=== PATIENT | female | born 2005 | race Caucasian/White ===

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

== ENCOUNTER → 2023-02-06 15:02 | Outpatient (CLI) | payer OTHER, MEDICAID, SELFPAY ==
[2023-02-09 22:56] LABS: AFP, Serum 40.1 ng/mL (.); Estriol, Free 2.13 ng/mL (.); Inhibin A, Dimeric 105.85 pg/mL (.); Inhibin A, MoM 0.68 (.); Maternal Ethnicity Caucasian (.); Maternal Weight 145 lbs (.); Number of Fetuses No (.); OSBR Risk 1 IN 10000 (.); Results Report (.); Test Results *Screen Negative* (.); hCG, MoM 0.64 (.); hCG, Serum 19661 mIU/mL (.)
== END ==
PROVIDERS: Family Provider Pediatrics; PCP Family Medicine; Referring Provider Student in an Organized Health Care Education/Training Program; Visit Provider Student in an Organized Health Care Education/Training Program
DX: Z34.02 Encounter for supervision of normal first pregnancy, second trimester (principal); Z3A.18 18 weeks gestation of pregnancy
CPT/HCPCS: 36415; 82105; 82677; 84702; 86336

== ENCOUNTER → 2023-02-22 14:20 | Outpatient (CLI) | payer OTHER, MEDICAID, SELFPAY ==
--- NOTE | 2023-02-22 14:21 | DI.US.S_ITS ---
PROCEDURE: US OB >= 14 WEEKS FETUS INDICATIONS: 20 Week Anatomy Scan OUTSIDE/PRIOR DATING DATA: Last menstrual period (LMP): 10/03/2022. LMP-based estimated date of delivery (FRANCIS): 07/10/2023. The calculations are made using the clinical FRANCIS of 07/10/2023. TECHNIQUE: Real-time scanning was performed of the fetus, with image documentation and biometric measurements. Endovaginal scanning: Not performed COMPARISON: [facility], , US OB < 14 WEEKS + OB TRANSVAG, 11/15/2022, 16:31. FINDINGS: General: A single living intrauterine gestation is present. Presentation: Vertex. Placenta: Placental position is anterior , without previa. Amniotic fluid index: 11.3 cm, normal range is 5-24 cm. Single deepest vertical pocket is 4.3 cm. heart rate: 147 beats per minute. Maternal cervical canal: 3.3 cm long. Normal lower limit is 2.5 cm. biometrics: Biparietal diameter: 4.7 cm, 20 weeks 1 day Head circumference: 18.3 cm, 20 weeks 5 days Abdominal circumference: 14.2 cm, 19 weeks 4 days Femur length: 2.9 cm, 19 weeks 0 days Clinically estimated gestational age: 20 weeks 2 days Composite gestational age from present scan: 19 weeks 6 days Estimated weight and percentile: 294 g, 11th percentile Anatomic survey: Neuro: Ventricles are non-dilated at less than 10 mm. Cisterna magna is normal at 3-11 mm. Cerebellum is normal in size and morphology. Nuchal skin fold: Normal at less than 6 mm between 14-21 weeks gestational age. Face: Nose and lips, facial profile are normal. Spine: No evidence for spina bifida. Heart: 4-chambered heart is present, with normal ventricular outflow tracts. Diaphragm: Diaphragm is intact. Stomach: Left-sided stomach is present. Kidneys: No hydronephrosis. Normal is less than 5 mm in 2nd trimester, less than 7 mm in 3rd trimester. Cord: 3-vessel cord has orthotopic insertion. Bladder: Normal in size. Extremities: All 4 extremities identified. IMPRESSION: 1. Single live intrauterine consistent with 19 weeks and 6 days. 2. Estimated weight is at the 11th percentile. Consider follow-up ultrasound as clinically indicated. 3. Normal anatomic survey. We strive to produce accurate, complete, and clear reports of imaging services. To assist us in improving patient care, this report was composed using standard report templates and voice recognition software. Therefore, it may contain abnormal punctuation, insertions and/or omissions. Occasional wrong-word or sound-alike substitutions may occur. Though we review the report and make efforts to correct it, we do recommend that the report be read carefully in proper context to recognize any text inaccuracies. Dictated by: Davon Briscoe M.D. on 02/23/2023 at 11:15 Approved by: Davon Brisoce M.D. on 02/23/2023 at 11:17
== END ==
PROVIDERS: Family Provider Pediatrics; PCP Family Medicine; Referring Provider Student in an Organized Health Care Education/Training Program; Visit Provider Student in an Organized Health Care Education/Training Program
DX: Z34.82 Encounter for supervision of other normal pregnancy, second trimester (principal); Z3A.19 19 weeks gestation of pregnancy
CPT/HCPCS: 76811

== ENCOUNTER → 2023-03-26 15:24 | Outpatient (CLI) | payer OTHER, MEDICAID, SELFPAY ==
[2023-03-26 17:35] LABS: Hematocrit 34.2 % (36-46); Hemoglobin 11.4 g/dL (12.0-16.0)
[2023-03-26 18:06] LABS: GTT (PREG) 1 Hour PP 50gm Dose 123 mg/dL (76-139)
== END ==
PROVIDERS: Family Provider Pediatrics; PCP Family Medicine; Referring Provider Student in an Organized Health Care Education/Training Program; Visit Provider Student in an Organized Health Care Education/Training Program
DX: Z34.82 Encounter for supervision of other normal pregnancy, second trimester (principal); Z3A.26 26 weeks gestation of pregnancy
CPT/HCPCS: 36415; 82950; 85014; 85018

== ENCOUNTER → 2023-04-19 15:53 | Outpatient (CLI) | payer OTHER, MEDICAID, SELFPAY ==
--- NOTE | 2023-04-19 15:54 | DI.US.S_ITS ---
PROCEDURE: US OB LIMITED INDICATIONS: EFW OUTSIDE/PRIOR DATING DATA: Last menstrual period (LMP): 10/03/2022 LMP-based estimated date of delivery (FRANCIS): 07/10/2023. First dating scan (date and location): 11/15/2022 Estimated date of delivery (FRANCIS) from first dating scan: 07/10/2023. Working FRANCIS is 07/10/2023 TECHNIQUE: Real-time scanning was performed of the fetus, with image documentation and biometric measurements. COMPARISON: [facility], , OB >= 14 WEEKS FETUS, 02/22/2023, 14:30. FINDINGS: General: A single living intrauterine gestation is present. Presentation: Vertex. Placenta: Placental position is anterior , without previa. Amniotic fluid index: 16 cm, normal range is 5-24 cm. Single deepest vertical pocket is 6.4 cm. heart rate: 137 beats per minute. Maternal cervical canal: 3.8 cm long. Normal lower limit is 2.5 cm. biometrics: Biparietal diameter: 29 weeks Head circumference: 28 weeks 6 days Abdominal circumference: 27 weeks 6 days Femur length: 27 weeks 1 day Clinically estimated gestational age: 28 weeks 2 days Composite gestational age from present scan: 28 weeks 2 days Estimated weight and percentile: 1128 g; 21st percentile Other: Not applicable. IMPRESSION: 1. Single living IUP redemonstrated and interval growth is normal. We strive to produce accurate, complete, and clear reports of imaging services. To assist us in improving patient care, this report was composed using standard report templates and voice recognition software. Therefore, it may contain abnormal punctuation, insertions and/or omissions. Occasional wrong-word or sound-alike substitutions may occur. Though we review the report and make efforts to correct it, we do recommend that the report be read carefully in proper context to recognize any text inaccuracies. Dictated by: King RASHEED Interpreted: Ronald Vasquez MD on 04/19/2023 at 16:53 Approved by: Ping Castañeda M.D. on 05/01/2023 at 23:37
== END ==
PROVIDERS: Family Provider Pediatrics; PCP Family Medicine; Referring Provider Student in an Organized Health Care Education/Training Program; Visit Provider Student in an Organized Health Care Education/Training Program
DX: Z34.03 Encounter for supervision of normal first pregnancy, third trimester (principal); Z3A.28 28 weeks gestation of pregnancy
CPT/HCPCS: 76815

== ENCOUNTER → 2023-04-26 15:46 | Outpatient (CLI) | payer OTHER, MEDICAID, SELFPAY ==
[2023-04-26 16:02] LABS: Bilirubin Urine UA NEGATIVE (NEGATIVE); Color Urine UA YELLOW; Glucose Urine UA 2+ g/dL (Negative); Ketones Urine UA TRACE (NEGATIVE); Leukocyte Esterase Urine UA 2+ (NEGATIVE); Nitrite Urine UA NEGATIVE (Negative); Occult Blood Urine UA NEGATIVE (Negative); Protein Urine UA NEGATIVE (Negative); Specific Gravity Urine UA 1.015 (1.000-1.035)
[2023-04-26 16:03] LABS: Appearance Urine UA CLOUDY
[2023-04-26 16:14] LABS: Amorphous Sediment Urine 1+; Bacteria Urine Many (>30); Culture Indicated Urine Specimen Cultured; RBC Urine None Seen (0-5/HPF); Squamous Epithelial Cell Urine 1-5 /HPF (0-5/HPF); Urine Volume 10mL (spun); WBC Urine 1-5/HPF (0-5/HPF)
== END ==
PROVIDERS: Family Provider Pediatrics; PCP Family Medicine; Referring Provider Student in an Organized Health Care Education/Training Program; Visit Provider Student in an Organized Health Care Education/Training Program
DX: Z34.90 Encounter for supervision of normal pregnancy, unspecified, unspecified trimester (principal); R10.2 Pelvic and perineal pain; R35.0 Frequency of micturition
CPT/HCPCS: 81001; 87086

== ENCOUNTER → 2023-05-31 15:06 | Outpatient (CLI) | payer OTHER, MEDICAID, SELFPAY | PROVIDERS: Family Provider Pediatrics; PCP Family Medicine; Visit Provider Student in an Organized Health Care Education/Training Program | DX: Z34.81 Encounter for supervision of other normal pregnancy, first trimester (principal) | CPT/HCPCS: 87086 ==

== ENCOUNTER 2023-06-05 14:59 | Observation (INO) | payer OTHER, MEDICAID, SELFPAY ==
[2023-06-05 16:43] VITALS: TEMP 37.1
[2023-06-05] MEDS: ACETAMINOPHEN 325 MG TABLET 650 MG PO (16:43)
[2023-06-05 16:47] LABS: Appearance Urine UA CLEAR; Bilirubin Urine UA NEGATIVE (NEGATIVE); Color Urine UA YELLOW; Glucose Urine UA 1+ g/dL (Negative); Ketones Urine UA NEGATIVE (NEGATIVE); Leukocyte Esterase Urine UA NEGATIVE (NEGATIVE); Nitrite Urine UA NEGATIVE (Negative); Occult Blood Urine UA NEGATIVE (Negative); Protein Urine UA NEGATIVE (Negative); Specific Gravity Urine UA <=1.005 (1.000-1.035); Urobilinogen Urine UA 0.2 E.U./dL (0.2)
[2023-06-05 16:55] LABS: Bacteria Urine Moderate (10-30); Culture Indicated Urine Cult Not Indicated; RBC Urine 0-1/HPF (0-5/HPF); Squamous Epithelial Cell Urine 1-5 /HPF (0-5/HPF); Urine Volume 10mL (spun); WBC Urine 0-1/HPF (0-5/HPF)
== END 2023-06-05 18:09 | disposition home or self-care (01) ==
PROVIDERS: Admitting Provider Obstetrics & Gynecology; Family Provider Pediatrics; PCP Family Medicine; Referring Provider Obstetrics & Gynecology; Visit Provider Obstetrics & Gynecology
DX: O60.03 Preterm labor without delivery, third trimester (principal); Z3A.35 35 weeks gestation of pregnancy
CPT/HCPCS: 59025; 59050; 81001; G0378; G0379

== ENCOUNTER → 2023-06-13 10:12 | Outpatient (CLI) | payer OTHER, MEDICAID, SELFPAY ==
[2023-06-14 13:54] LABS: Strep Grp B PCR POS for Grp B Strep
== END ==
PROVIDERS: Family Provider Pediatrics; PCP Family Medicine; Visit Provider Student in an Organized Health Care Education/Training Program
DX: Z34.83 Encounter for supervision of other normal pregnancy, third trimester (principal); Z3A.36 36 weeks gestation of pregnancy
CPT/HCPCS: 87653

== ENCOUNTER 2023-06-21 07:30 | Inpatient (IN) | payer OTHER, MEDICAID, SELFPAY ==
[2023-06-21 08:48] LABS: Add Manual Diff / Slide Review NO; Basophils Absolute Auto 0 /uL (0-100); Basophils Percent Auto 0.3 % (0-2); Eosinophils Absolute Auto 100 /uL (0-450); Eosinophils Percent Auto 0.8 % (2-4); Hematocrit 29.8 % (36-46); Hemoglobin 10.2 g/dL (12.0-16.0); Lymphocytes Absolute Auto 1500 /uL (1100-4500); Lymphocytes Percent Auto 13.7 % (25-40); Mean Corpuscular HGB Conc 34.1 % (30-36); Mean Corpuscular Hemoglobin 30.1 PG (26-34); Mean Corpuscular Volume 88.3 fL (80-100); Monocytes Absolute Auto 600 /uL (0-900); Monocytes Percent Auto 5.4 % (3-14); Neutrophils Absolute Auto 8800 /uL (1500-7000); Neutrophils Percent Auto 79.8 % (50-75); Platelet Count 231 X10^3/uL (150-400); Red Blood Cell Count 3.37 X10^6/uL (4.0-5.2); White Blood Cell Count 11.1 X10^3/uL (4.5-11.0)
[2023-06-21] MEDS: LACTATED RINGERS 1,000 ML 100 ML IV (08:51)
[2023-06-21] MEDS: AMPICILLIN 2,000 MG in SODIUM CHLORIDE 0.9% 100 ML 200 MG IV (08:51)
[2023-06-21 10:06] VITALS: BP 121/70
--- NOTE | 2023-06-21 12:24 | P.HPOB_ITS ---
OB HPI Date/Time Date of admission: 06/21/23 Date Patient Seen: 06/21/23 Time Patient Seen: 12:24 History of Present Condition Chief complaint: Spontaneous rupture membranes : 2 Para: 0 Estimated Date of Delivery: 07/10/23 Estimated Gestational Age (weeks): 37 Narrative: Pooja Delatorre is a 17 year old female presented to labor and delivery with spontaneous rupture membranes at 37 weeks 2 days History of Present care: good care, initiated at week # (10), number of visits (8) and pounds weight gain (79) Dating criteria: LMP confirmed by 1st trimester US Ultrasounds: normal mid trimester US Obstetrical complications: none Medical complications: other (Excessive weight gain, 79 lb) Preadmission Labs Blood type: A (+) positive -: Antibody screen: negative, GBS status: positive, HBsAG: negative, HIV: negative and RPR/VDLR: negative -: Chlamydia screen: not detected and Gonorrhea screen: not detected -: Rubella: immune and Varicella: not immune HCAB: negative Quad screen: Normal 1 hr GTT: 123 Evaluation Evaluation Baseline heart rate: 130 monitor accelerations: Present Monitor Decelerations: Absent Uterine Contraction Intensity: Mild Category of Tracing: Reactive Status: Category l Dilation (cm): 2 Effacement (%): 90 station: -1 Position of cervix: mid Consistency: soft [facility] Medical History (Updated 06/13/23 @ 13:43 by Brissa Joseph DO) Nicotine vapor product user Eating disorder Substance abuse (~2011) PTSD (post-traumatic stress disorder) Personality disorder Anorexia nervosa (~2014) Anxiety (~2014) Depression (~2014) Suicidal overdose Surgical History H/O dilation and curettage (~07/2018) Social History marital status: unmarried,living together number of children: 0 household members: significant other and family (s/o's brother and ALESSIA) lives independently: Yes caregiver/support person: No housing: house pets and animals: Yes (cats, dog; aware of toxo precautions) education level: high school (didn't finish senior year) 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[employer]) current occupational exposures/hazards: No special alberto needs: No travel history: recent (domestic only) seatbelt use: always water heater temp set < 120 deg: Yes working smoke detector in home: Yes fire extinguisher in home: Yes carbon monox detector in home: Yes firearms in home: No do you feel safe at home: Yes Smoking Status: Former smoker Tobacco: How many years used: 5 quit status: considering quitting second hand exposure: Yes (everyone she lives with smokes/vapes) alcohol intake: former (heavy drinker prior to ) substance use type: marijuana (not while /), hallucinogens (mushrooms, acid, not for a few years) and club/fire protection designer drugs (flores, not for a few years) during the past year weight has: other well-balanced diet: daily or most days daily servings fruits/ve or more times/day caffeine: Yes (occasional energy drink (asked to stick to coffee/tea)) Type(s) of exercise: other (active, physical job) Meds Home Medications and Allergies Home Medications Medication Instructions Recorded Confirmed Type vit no.95-ferrous 1 tab PO DAILY 11/28/22 06/21/23 History fumarate 28 mg-folic acid 800 mcg tablet ( Multivitamins) nicotine 7 mg/24 hr daily 1 patch transdermal Q24H #14 ea 03/06/23 06/21/23 Rx transdermal patch Allergies Allergy/AdvReac Type Severity Reaction Status Date / Time No Known Drug Allergies Allergy Verified 06/13/23 10:13 Review of Systems Review of Systems Narrative: Patient with spontaneous rupture membranes clear fluid at 6:00 a.m.. Some increasing contractions. No bleeding. Good movement. No headaches, scotomata, epigastric pain. No fevers. OB Exam Vital signs Blood Pressure: 132/66 Pulse Rate: 88 Temperature: 97.5 F Narrative Exam Narrative: HEENT exam within normal limits. Patient with multiple piercings. No thyromegaly. Lungs are clear to auscultation. Heart is regular rate and rhythm. Abdomen is gravid. Fetus is vertex. Extremities without edema and nontender. Objective Labs 06/21/23 08:15 Labs: Laboratory Results - last 24 hr 06/21/23 08:15 WBC 11.1 H RBC 3.37 L Hgb 10.2 L Hct 29.8 L MCV 88.3 MCH 30.1 MCHC 34.1 RDW 14.0 Plt Count 231 Neut % (Auto) 79.8 H Lymph % (Auto) 13.[address] [place] % (Auto) 5.4 Eos % (Auto) 0.8 L Baso % (Auto) 0.3 Neut # (Auto) 8800 H Lymph # (Auto) [address] [place] # (Auto) 600 Eos # (Auto) 100 Baso # (Auto) 0 Blood Type A Positive Antibody Screen Negative Assessment and Plan Assessment and Plan Assessment and Plan narrative: 37 week 2 day gestation with spontaneous rupture membranes at 6:00 a.m. with a history of positive group B strep. Patient was started on IV antibiotics. The patient is agreeable to start Pitocin to start active labor. Last ultrasound fetus in the 17th percentile for growth. Patient requesting epidural when appropriate. Patient unsure about . Time Spent with Patient Total time spent with greater than 50% in coordination of care (as documented) at patient's floor/unit and/or counseling patient:: less than 15 minutes
[2023-06-21 12:31] VITALS: BP 132/66; PULSE 88; TEMP 36.4
[2023-06-21] MEDS: AMPICILLIN 1,000 MG in SODIUM CHLORIDE 0.9% 100 ML 200 MG IV (13:05)
[2023-06-21] MEDS: OXYTOCIN PREMIX 30 UNIT/500 ML PLAST..BAG IV (13:06)
--- NOTE | 2023-06-21 15:48 | PM.AN.REGBLK ---
Regional Block Pre-procedure Procedure: Continuous Lumbar Epidural for L&D Attending OB provider: Brissa Joseph PMH/ROS narrative: 17 yo in term labor requesting labor epidural. See pre-anesthesia note fro details ASA Class: II Labs: Hct 29.8 % (36-46) L 06/21/23 08:15 Plt Count 231 X10^3/uL (150-400) 06/21/23 08:15 Medications: Current Medications Generic Name Dose Route Start Last Admin Trade Name Freq PRN Reason Stop Dose Admin Carboprost Tromethamine 250 mcg 06/21/23 07:58 Carboprost 250 Mcg/Ml Ampul IM Q90M PRN Bleeding Oxytocin/Lactated Ringer's 30 unit in 500 mls @ 200 mls/hr 06/21/23 07:58 Oxytocin Premix IV CONT PRN Bleeding Protocol Tranexamic Acid 1,000 mg/ 100 mls @ 200 mls/hr 06/21/23 07:58 Sodium Chloride IV NOW PRN Bleeding Ampicillin Sodium 1,000 mg/ 100 mls @ 200 mls/hr 06/21/23 12:00 06/21/23 13:05 Sodium Chloride IV 200 mls/hr Q4H PRIYANK Administration Oxytocin/Lactated Ringer's 30 unit in 500 mls @ 2 mls/hr 06/21/23 08:00 06/21/23 13:06 Oxytocin Premix IV 2 milliunit/min TITRATE PRIYANK 2 mls/hr Administration Protocol 2 MILLIUNIT/MIN Lactated Ringer's 1,000 mls @ 100 mls/hr 06/21/23 08:00 06/21/23 08:51 Lactated Ringers IV 100 mls/hr CONT PRIYANK Administration Lidocaine HCl 20 ml 06/21/23 07:58 Lidocaine 1% 20 Ml INJ INTRA-OP PRN Post Delivery Methylergonovine Maleate 0.2 mg 06/21/23 07:58 Methylergonovine 0.2 Mg Tablet PO Q6HR PRN Heavy Bleeding Methylergonovine Maleate 0.2 mg 06/21/23 07:58 Methylergonovine 0.2 Mg/Ml Vial IM NOW PRN Bleeding Misoprostol 800 mcg 06/21/23 07:58 Misoprostol [address] NOW PRN Bleeding Misoprostol 400 mcg 06/21/23 07:58 Misoprostol 200 Mcg Tablet SL NOW PRN Bleeding Naloxone HCl 0.2 mg 06/21/23 07:58 Naloxone 0.4 Mg/Ml Vial IV Q2MIN PRN Opiate Reversal Ondansetron HCl 4 mg 06/21/23 07:59 Ondansetron 4 Mg/2 Ml Inj IV Q4HR PRN Nausea And Vomiting Oxytocin 10 unit 06/21/23 07:58 Oxytocin 10 Unit/Ml Vial IM NOW PRN Bleeding Allergies: Allergies Allergy/AdvReac Type Severity Reaction Status Date / Time No Known Drug Allergies Allergy Verified 06/13/23 10:13 Procedure Insertion date: 06/21/23 Insertion time: 14:14 Prep/Local: 1% lidocaine (chloroprep) Interspace: l 3-4 Patient position: sitting Needle: 18 gauge Ayah Loss of resistance with: saline MARRY at (cm): 6 Catheter placed at SKIN (cm): 13 Catheter in SPACE (cm): 7 Insertion: No CSF, No Blood, No Paresthesia with insertion, No Paresthesia with injection and No Test dose reaction Initial Medications TEST DOSE time: 14:15 TEST DOSE: 1.5% lidocaine with epinephrine 1:200k (mL): 3 BOLUS DOSE time: 14:25 BOLUS DOSE (mL): 10 BOLUS DOSE med: 0.125% bupivacaine with fentanyl 10 mcg/mL (fent 2 mcg/ml, not 10) Infusion INFUSION: 0.125% bupivacaine and with fentanyl 2 mcg/mL Initial rate (mL/hr): 10 Post-procedure Anesthesia date START: 06/21/23 Anesthesia time START: 14:10 Anesthesia date END: 06/21/23 Anesthesia time END: 16:33 Post-procedure Anesthesia Assessment: Yes CV function: HR/BP stable, Yes Resp function: RR/sat/airway adequate, Yes Post-op hydration adequate, Yes Pain control adequate, Yes Nausea & vomiting absent, Yes Temperature > 36 C, Yes Mental status appropriate and No Anesthesia complications
--- NOTE | 2023-06-21 17:12 | PM.OBPRVD ---
Events: Premature Rupture Membrane Labor & Delivery Delivery date: 06/21/23 Intrapartal Events: None Delivery augmentation: pitocin Delivery monitor: external FHT Route of delivery: L&D Laceration Description: Perineal - 2nd Degree and Labial Delivery repair: vicryl Estimated blood loss (mL): 400 Anesthesia Type: Epidural Complications: none Narrative: The patient progressed to C/C/+2 with pitocin augmentation and epidural anesthesia. After approximately 30min of maternal pushing efforts, the delivered in OA position and restituted ROT. The anterior shoulder delivered with gentle downward pressure. The posterior shoulder and rest of body delivered with ease. The cord was doubly clamped and cut after a 60sec delay with the infant placed on maternal abdomen. The placenta delivered spontaneously and was intact with a 3-vessel cord. The fundus was noted to be firm with bimanual massage and pitocin. Inspection of the cervix, vagina, and perineum was notable for a 2nd degree perineal laceration. Repair was performed using 3-0 Vicryl in a running, unlocked fashion. Skin was reapproximated in a running, subcuticular fashion. The right labial laceration was also repaired with a 3-0 Vicryl in a running fashion. At the end of the repair, all tissues noted to be hemostatic. All sponges were removed from the vagina. The patient tolerated delivery well and remained in the labor room with the at the bedside. [place] Baby 1: gender: Female Presentation: vertex score (1 min): 9 score (5 min): 9 weight: 6 lb 0.122 oz Plan for aftercare: Routine care
[2023-06-21] MEDS: ACETAMINOPHEN 325 MG TABLET 650 MG PO (22:15)
[2023-06-21] MEDS: IBUPROFEN 600 MG TABLET PO (22:15)
[2023-06-22] MEDS: IBUPROFEN 600 MG TABLET PO ×3 (06:27→18:43)
[2023-06-22] MEDS: ACETAMINOPHEN 325 MG TABLET 650 MG PO ×3 (06:27→18:43)
--- NOTE | 2023-06-22 09:05 | PM.OBDS.1 ---
Discharge Providers Provider Date of admission: 06/21/23 07:30 Discharge Date: 06/22/23 Primary care physician: Wilber Valladares DO Consults: 06/21/23 07:58 Consult to Anesthesiology Urgent Comment: Consulting Provider: Anesthesiologist Reason for consultation: Epidural 06/22/23 17:08 Consult to Bobbin Doffer Routine Comment: Discharge provider: Letty Monroy MD Summary Hospital Course Date Patient Seen: 06/22/23 Time Patient Seen: 09:06 Diagnoses: 37 week gestation with premature rupture membranes Hospital Course: Patient had spontaneous rupture membranes on 06/21/2023. She presented to the hospital not in active labor. She was started on Pitocin and received an epidural catheter for pain control. She had a spontaneous vaginal delivery. Patient is pumping to feed her baby. Her pain is under control. She is urinating and ambulating well. Peripartum Data Delivery Method: Natural Vaginal Laceration Description: Vaginal - 2nd Degree and Labial Procedures: Pitocin induction of labor, epidural catheter, spontaneous vaginal delivery with repair of labial and second-degree vaginal tear complications: none [place] 1: Gender: Female Disposition of : home Discharge Diagnosis (1) 37 weeks gestation of : Status: Acute (2) Normal spontaneous vaginal delivery: Status: Acute (3) PROM with onset of labor within 24 hours, delivered, curr hospitaliz: Status: Acute Status at Discharge Cognitive/behavioral status at discharge: oriented Functional status at discharge: independent ambulation Overall status at discharge: patient is progressing back to baseline Time Spent with Patient Time attestation: Total time spent providing and/or coordinating discharge services: Time spent: Less than 30 minutes Objective Labs 06/21/23 08:15 Labs: Laboratory Results - last 24 hr 06/21/23 08:15 Blood Type A Positive Antibody Screen Negative Exam Vital Signs (past 8 hours): Blood pressure 133/66, pulse 91, temperature 98.1? Narrative Exam Narrative: Abdomen is soft, nontender. Uterus is firm, at U -1, nontender. Repair intact. Mild lochia. Extremities without edema and nontender. Discharge Plan Discharge Plan Patient Disposition: Home Provider Discharge Comment: Patient is anemic. Have her take vitamins C with her iron at a different time than her vitamins Discharge orders & Medications Prescriptions: New ferrous sulfate 325 mg (65 mg iron) tablet 325 mg PO DAILY Qty: 30 1RF Continued PNV cmb#95-ferrous fumarate-FA [ Multivitamins] 28 mg iron- 800 mcg tablet 1 tab PO DAILY Discontinued nicotine 7 mg/24 hr patch 24 hour 1 patch transdermal Q24H Qty: 14 1RF Follow up/Referrals: Wilber Valladares DO [Primary Care Provider] - Brissa Joseph DO [Physician] - 08/02/23 11:30 am (six week appointment with Dr. Joseph ) Diet/Activity/Treatments Diet: Regular Activity: Nothing in vagina for 6 weeks Skin/Wound/Dressing Care Report to your healthcare provider any signs of infection, such as:: chills, fever and increased pain Visit Report/Discharge Packet Stand Alone Forms: Discharge: Care, Patient Portal/API, Stroke Signs & Symptoms Discharge Data Primary Care Provider: Wilber Valladares Attending Provider: Brissa Joseph Admit Date/Time: 06/21/23 07:30
[2023-06-22] MEDS: DOCUSATE 100 MG CAPSULE PO (10:18)
[2023-06-22] MEDS: PRENATAL VIT,CALC/IRON/FOLIC 1 TABLET 1 TAB PO (10:18)
[2023-06-23] MEDS: ACETAMINOPHEN 325 MG TABLET 650 MG PO ×2 (00:29→06:39)
[2023-06-23] MEDS: IBUPROFEN 600 MG TABLET PO ×2 (00:29→06:39)
--- NOTE | 2023-06-23 09:28 | PM.OBDS.1 ---
Discharge Providers Provider Date of admission: 06/21/23 07:30 Discharge Date: 06/23/23 Primary care physician: Wilber Valladares DO Consults: 06/21/23 07:58 Consult to Anesthesiology Urgent Comment: Consulting Provider: Anesthesiologist Reason for consultation: Epidural 06/22/23 17:08 Consult to Adoption Social Worker Routine Comment: Discharge provider: Letty Monroy MD Summary Hospital Course Date Patient Seen: 06/23/23 Time Patient Seen: 09:28 Diagnoses: 37 week prom Hospital Course: Patient had spontaneous rupture membranes on 06/21/2023. She presented to the hospital not in active labor. She was started on Pitocin and received an epidural catheter for pain control. She had a spontaneous vaginal delivery. Patient is pumping to feed her baby. Her pain is under control. She is urinating and ambulating well. Patient had been discharged on 06/22/2023 but decision was made for the patient to stay for additional help with care of her baby and herself. Peripartum Data Delivery Method: Natural Vaginal Laceration Description: Vaginal - 2nd Degree and Labial Procedures: Induction of labor, epidural catheter, spontaneous vaginal delivery, repair of second-degree tear complications: none 1: Gender: Female Disposition of : home Discharge Diagnosis (1) 37 weeks gestation of : Status: Acute (2) Normal spontaneous vaginal delivery: Status: Acute (3) PROM with onset of labor within 24 hours, delivered, curr hospitaliz: Status: Acute Status at Discharge Cognitive/behavioral status at discharge: oriented Functional status at discharge: independent ambulation Overall status at discharge: patient is progressing back to baseline Time Spent with Patient Time attestation: Total time spent providing and/or coordinating discharge services: Time spent: Less than 30 minutes Objective Labs 06/21/23 08:15 Exam Vital Signs (past 8 hours): Blood pressure 120/60, pulse 62, temperature 97.8? Narrative Exam Narrative: Abdomen is soft, nontender. Uterus is firm, U-1, nontender. Mild lochia. Extremities with +1 edema and nontender. Discharge Plan Discharge Plan Patient Disposition: Home Provider Discharge Comment: Patient is anemic. Have her take vitamins C with her iron at a different time than her vitamins Discharge orders & Medications Prescriptions: New ferrous sulfate 325 mg (65 mg iron) tablet 325 mg PO DAILY Qty: 30 1RF Continued PNV cmb#95-ferrous fumarate-FA [ Multivitamins] 28 mg iron- 800 mcg tablet 1 tab PO DAILY Discontinued nicotine 7 mg/24 hr patch 24 hour 1 patch transdermal Q24H Qty: 14 1RF Follow up/Referrals: Wilber Valladares DO [Primary Care Provider] - Brissa Joseph DO [Physician] - 08/02/23 11:30 am (six week appointment with Dr. Joseph ) Diet/Activity/Treatments Diet: Regular Activity: Nothing in vagina for 6 weeks Skin/Wound/Dressing Care Report to your healthcare provider any signs of infection, such as:: chills, fever and increased pain Visit Report/Discharge Packet Stand Alone Forms: Discharge: Care, Patient Portal/API, Stroke Signs & Symptoms Discharge Data Primary Care Provider: Wilber Valladares Attending Provider: Brissa Joseph Admit Date/Time: 06/21/23 07:30
[2023-06-23] MEDS: DOCUSATE 100 MG CAPSULE PO (09:39)
[2023-06-23] MEDS: PRENATAL VIT,CALC/IRON/FOLIC 1 TABLET 1 TAB PO (09:39)
== END 2023-06-23 11:10 | disposition home or self-care (01) | DRG 560 ==
PROVIDERS: Admitting Provider Student in an Organized Health Care Education/Training Program; Family Provider Pediatrics; PCP Family Medicine; Referring Provider Student in an Organized Health Care Education/Training Program; Visit Provider Student in an Organized Health Care Education/Training Program
DX: O42.02 Full-term premature rupture of membranes, onset of labor within 24 hours of rupture (principal); Z3A.37 37 weeks gestation of pregnancy; Z37.0 Single live birth; O99.824 Streptococcus B carrier state complicating childbirth; O70.1 Second degree perineal laceration during delivery
CPT/HCPCS: 36415; 59050; 59409; 84112; 85025; 86850; 86900; 86901; G0378; G0379; J0290; J2590

== ENCOUNTER → 2024-02-07 13:49 | Outpatient (CLI) | payer OTHER, MEDICAID, SELFPAY ==
[2024-02-07 14:36] LABS: Add Manual Diff / Slide Review NO; Basophils Absolute Auto 0 /uL (0-100); Basophils Percent Auto 0.4 % (0-2); Eosinophils Absolute Auto 200 /uL (0-450); Eosinophils Percent Auto 2.1 % (2-4); Hematocrit 40.5 % (36-46); Hemoglobin 13.5 g/dL (12.0-16.0); Lymphocytes Absolute Auto 1900 /uL (1100-4500); Lymphocytes Percent Auto 26.4 % (25-40); Mean Corpuscular HGB Conc 33.3 % (30-36); Mean Corpuscular Volume 84.3 fL (80-100); Monocytes Absolute Auto 400 /uL (0-900); Monocytes Percent Auto 4.9 % (3-14); Neutrophils Absolute Auto 4800 /uL (1500-7000); Neutrophils Percent Auto 66.2 % (50-75); Platelet Count 288 X10^3/uL (150-400); Red Blood Cell Count 4.81 X10^6/uL (4.0-5.2); Red Cell Distribution Width 14.2 % (11.6-14.8); White Blood Cell Count 7.2 X10^3/uL (4.5-11.0)
[2024-02-07 15:08] LABS: Alanine Aminotransferase 20 IU/L (<35); Albumin 4.8 g/dL (3.5-5.0); Albumin Globulin Ratio 1.5 (1.0-2.8); Alkaline Phosphatase 93 U/L (38-126); Aspartate Aminotransferase 23 IU/L (14-36); BUN Creatinine Ratio 19.5 (6-22); Bilirubin Total 0.5 mg/dL (0.2-1.3); Blood Urea Nitrogen 16 mg/dL (7-17); Calcium 9.6 mg/dL (8.4-10.2); Carbon Dioxide 26 mmol/L (22-32); Chloride 103 mmol/L (98-107); Cholesterol 233 mg/dL (140-199); Estimated Glomerular Filt Rate > 60 mL/min (>60); Globulin 3.3 g/dL (1.7-4.1); Glucose 95 mg/dL (70-100); HDL Cholesterol 54 mg/dL (40-60); HEMOLYSIS < 15 (0-50); LDL Cholesterol Calculated 140 mg/dL (<100); Potassium 4.3 mmol/L (3.4-5.1); Sodium 138 mmol/L (137-145); Total Protein 8.1 g/dL (6.3-8.2); Triglycerides 196 mg/dL (35-150)
[2024-02-07 15:17] LABS: Hemoglobin A1C% w Est Avg Glu 5.2 % (4.0-6.0)
[2024-02-07 15:36] LABS: TSH w/ Reflex to FT4 1.51 uIU/mL (0.47-4.68)
== END ==
PROVIDERS: Family Provider Pediatrics; PCP Family Medicine; Referring Provider Family Medicine; Visit Provider Family Medicine
DX: F41.9 Anxiety disorder, unspecified (principal); Z86.59 Personal history of other mental and behavioral disorders; Z13.1 Encounter for screening for diabetes mellitus; D64.9 Anemia, unspecified; Z13.29 Encounter for screening for other suspected endocrine disorder; Z13.220 Encounter for screening for lipoid disorders; F32.A Depression, unspecified
CPT/HCPCS: 36415; 80053; 80061; 83036; 84443; 85025

== ENCOUNTER → 2024-07-16 15:50 | Outpatient (CLI) | payer OTHER, SELFPAY ==
--- NOTE | 2024-07-16 15:51 | DI.US.S_ITS ---
PROCEDURE: US PELVIC COMPLETE INDICATIONS: Amenorrhea TECHNIQUE: Real-time scanning was performed of the pelvic organs, with image documentation. Additional endovaginal scanning was necessary due to incomplete visualization of the adnexal and endometrial structures by transabdominal scanning. COMPARISON: None. FINDINGS: Uterus: Uterus is anteverted and normal in size at 8.1 x 5.7 x 3.6 cm. The myometrium is homogeneous. The endometrium measures 13 mm combined thickness. Ill-defined junctional zone which appears thickened, with several small cystic areas. No hyperemia. Ovaries: The right ovary measures 4.7 x 2.3 x 3 cm, with a calculated ovarian volume of 17 cc. The left ovary measures 3.2 x 3 x 2.1 cm, with a calculated ovarian volume of 11 cc. The ovaries have a normal sonographic appearance. More than 12 follicles seen bilaterally. No adnexal masses are seen. Other: No pathologic free abdominal or pelvic fluid. IMPRESSION: 1. Somewhat prominent and indistinct junctional zone, the possibility of adenomyosis can be better assessed with MRI. 2. Prominent bilateral ovarian follicles, may be seen with polycystic ovarian syndrome. No adnexal mass seen. We strive to produce accurate, complete, and clear reports of imaging services. To assist us in improving patient care, this report was composed using standard report templates and voice recognition software. Therefore, it may contain abnormal punctuation, insertions and/or omissions. Occasional wrong-word or sound-alike substitutions may occur. Though we review the report and make efforts to correct it, we do recommend that the report be read carefully in proper context to recognize any text inaccuracies. Dictated by: Reid Ramires M.D. on 07/16/2024 at 21:46 Approved by: Reid Ramires M.D. on 07/16/2024 at 21:49
== END ==
PROVIDERS: Family Provider Pediatrics; PCP Family Medicine; Referring Provider Family Medicine; Visit Provider Family Medicine
DX: N91.2 Amenorrhea, unspecified (principal)
CPT/HCPCS: 76830; 76856

== ENCOUNTER → 2024-12-04 13:37 | Outpatient (CLI) | payer OTHER, SELFPAY ==
--- NOTE | 2024-12-04 13:39 | DI.US.S_ITS ---
PROCEDURE: US PELVIC COMPLETE INDICATIONS: PAIN TECHNIQUE: Real-time scanning was performed of the pelvic organs, with image documentation. Additional endovaginal scanning was necessary due to incomplete visualization of the adnexal and endometrial structures by transabdominal scanning. COMPARISON: [facility], US, US PELVIC COMPLETE, 07/16/2024, 15:55. FINDINGS: Uterus: Uterus is retroverted and normal in size at 5.9 x 5.3 x 3.8 cm. The myometrium is homogeneous. The endometrium measures 3 mm combined thickness. Ovaries: The right ovary measures 4.4 x 2.2 x 2.6 cm, with a calculated ovarian volume of 13.2 cc. The left ovary measures 3.7 x 2.1 x 2.5 cm, with a calculated ovarian volume of 10.2 cc. The ovaries have a normal sonographic appearance. Greater than 12 follicles can be seen in each ovary (greater than 30). No adnexal masses are seen. Normal color Doppler flow is seen in both ovaries. Other: No pathologic free abdominal or pelvic fluid. IMPRESSION: 1. No acute sonographic abnormality. 2. Polycystic ovarian morphology. We strive to produce accurate, complete, and clear reports of imaging services. To assist us in improving patient care, this report was composed using standard report templates and voice recognition software. Therefore, it may contain abnormal punctuation, insertions and/or omissions. Occasional wrong-word or sound-alike substitutions may occur. Though we review the report and make efforts to correct it, we do recommend that the report be read carefully in proper context to recognize any text inaccuracies. Dictated by: Haven Valles M.D. on 12/07/2024 at 0:03 Approved by: Haven Valles M.D. on 12/07/2024 at 0:07
[2024-12-04 15:05] LABS: Appearance Urine UA CLEAR; Bilirubin Urine UA NEGATIVE (NEGATIVE); Color Urine UA YELLOW; Glucose Urine UA NEGATIVE (Negative); Ketones Urine UA NEGATIVE (NEGATIVE); Leukocyte Esterase Urine UA NEGATIVE (NEGATIVE); Nitrite Urine UA NEGATIVE (Negative); Occult Blood Urine UA TRACE-INTACT (Negative); Protein Urine UA NEGATIVE (Negative); Specific Gravity Urine UA 1.010 (1.000-1.035); Urobilinogen Urine UA 1.0 E.U./dL (0.2)
[2024-12-04 15:09] LABS: pH Urine UA 8.5 (4.5-8.0)
[2024-12-04 15:24] LABS: Culture Indicated Urine Cult Not Indicated
[2024-12-04 16:18] LABS: Add Manual Diff / Slide Review NO; Hematocrit 39.9 % (36-46); Hemoglobin 13.3 g/dL (12.0-16.0); Lymphocytes Absolute Auto 2300 /uL (1100-4500); Mean Corpuscular HGB Conc 33.4 % (30-36); Mean Corpuscular Hemoglobin 28.6 PG (26-34); Mean Corpuscular Volume 85.7 fL (80-100); Platelet Count 268 X10^3/uL (150-400)
[2024-12-04 16:45] LABS: Alanine Aminotransferase 17 IU/L (<35); Albumin 5.0 g/dL (3.5-5.0); Albumin Globulin Ratio 1.7 (1.0-2.8); Alkaline Phosphatase 75 U/L (38-126); Blood Urea Nitrogen 12 mg/dL (7-17); Calcium 9.4 mg/dL (8.4-10.2); Carbon Dioxide 25 mmol/L (22-32); Chloride 106 mmol/L (98-107); Estimated Glomerular Filt Rate > 60 mL/min (>60); Globulin 3.0 g/dL (1.7-4.1); Glucose 105 mg/dL (70-99); HEMOLYSIS 16 (0-50); Potassium 4.5 mmol/L (3.4-5.1); Sodium 141 mmol/L (137-145); Total Protein 8.0 g/dL (6.3-8.2)
== END ==
PROVIDERS: PCP Family Medicine; Referring Provider Family Medicine; Visit Provider Family Medicine
DX: E28.2 Polycystic ovarian syndrome (principal); N91.1 Secondary amenorrhea; N92.0 Excessive and frequent menstruation with regular cycle; R10.20 Pelvic and perineal pain unspecified side
CPT/HCPCS: 36415; 76830; 76856; 80053; 81001; 81025; 85025